=== PATIENT | female | born 1955 | race Caucasian/White ===

== ENCOUNTER 2025-03-10 15:33 | Emergency (ER) | payer BC, MEDICARE | END 2025-03-10 17:27 | disposition home or self-care (01) | LOC: FB.ED 15:33 | DX: S02.831A Fracture of medial orbital wall, right side, initial encounter for closed fracture (principal); S80.01XA Contusion of right knee, initial encounter; S69.91XA Unspecified injury of right wrist, hand and finger(s), initial encounter; I10 Essential (primary) hypertension; E11.9 Type 2 diabetes mellitus without complications; Z88.0 Allergy status to penicillin; Z88.2 Allergy status to sulfonamides; Z91.040 Latex allergy status; Z87.891 Personal history of nicotine dependence; W01.0XXA Fall on same level from slipping, tripping and stumbling without subsequent striking against object, initial encounter; W22.8XXA Striking against or struck by other objects, initial encounter; Y93.01 Activity, walking, marching and hiking | CPT/HCPCS: 70480; 70480-26; 73110-26-RT; 73110-RT; 99284 ==